=== PATIENT | male | born 1960 | race Caucasian/White ===

== ENCOUNTER 2019-01-23 08:44 | Emergency (ER) | payer BC ==
[2019-01-23] MEDS: HYDROCODONE/APAP (5/325) TAB PO (11:17)
[2019-01-23] MEDS: ONDANSETRON (ODT) 4 MG TAB ODT (11:17)
== END 2019-01-23 12:23 | disposition home or self-care (01) ==
LOC: FTE 12:23
DX: S92.341A Displaced fracture of fourth metatarsal bone, right foot, initial encounter for closed fracture (principal); S92.331A Displaced fracture of third metatarsal bone, right foot, initial encounter for closed fracture; X58.XXXA Exposure to other specified factors, initial encounter; Y92.9 Unspecified place or not applicable
CPT/HCPCS: 29515; 73610-RT; 73630; 73700; 99284-25